=== PATIENT | female | born 1955 | race Caucasian/White ===

== ENCOUNTER 2017-03-30 14:09 | Emergency (ER) | payer MEDICAID ==
[2017-03-30 14:32] VITALS: BMI 25.5
[2017-03-30 14:34] VITALS: RESP 18
[2017-03-30] MEDS ORDERED: Sodium Chloride 0.9% 500 ML IV ONE (15:04)
[2017-03-30] MEDS ORDERED: Aluminum Hydroxide/Magnesium Hydroxide Susp (30 mL) PO STA (15:04)
--- NOTE | 2017-03-30 15:08 | C.PDOC ---
History Of Present Illness 61 year old female, history of HTN, arthritis, osteoporosis, and borderline diabetes, presents to the ED with 3 days of right flank/right upper quadrant pain and gas/burping. She reports that pain began Friday night at which time she vomited after which she felt slightly improved. She also complains of shortness of breath secondary to pain and burping. She denies trauma. Time Seen by Provider: 03/30/17 14:57 Chief Complaint (Nursing): Rib Injury History Per: Patient History/Exam Limitations: no limitations Onset/Duration Of Symptoms: Days Current Symptoms Are (Timing): Still Present Location Of Pain/Discomfort: Diffuse, Other (worst in right upper quadrant) Quality Of Discomfort: Gas Associated Symptoms: Vomiting Past Medical History Reviewed: Historical Data, Nursing Documentation, Vital Signs Vital Signs: Last Vital Signs Temp 97.9 F 03/30/17 17:19 Pulse 68 03/30/17 17:19 Resp 18 03/30/17 17:19 BP 129/62 03/30/17 17:19 Pulse Ox 98 03/30/17 17:19 - Medical History PMH: Arthritis, HTN, Osteoporosis Surgical History: Denies: Pacemaker - [facility] Procedures INJECT/INFUSE NEC (10/03/05) Family History: States: Unknown Family Hx - Social History Hx Alcohol Use: Yes (SOCIAL) Hx Substance Use: No Review Of Systems Respiratory: Positive for: Shortness of Breath Gastrointestinal: Positive for: Vomiting, Abdominal Pain Physical Exam - Physical Exam Appears: Other (Patient appears visibly uncomfortable and burping ) Skin: Normal Color, Warm, Dry Head: Atraumatic, Normacephalic Chest: Tenderness (mild right chest wall tenderness) Cardiovascular: Rhythm Regular, No Murmur Respiratory: Normal Breath Sounds Gastrointestinal/Abdominal: Tenderness (worst in right upper quadrant ) Back: CVA Tenderness (Right ), Other (Right sided muscular tenderness ) Extremity: No Pedal Edema, No Calf Tenderness, No Deformity Neurological/Psych: Oriented x3 ED Course And Treatment - Laboratory Results Result Diagrams: 03/30/17 15:53 03/30/17 15:53 O2 Sat by Pulse Oximetry: 100 Medical Decision Making Medical Decision Making: Xray of abdomen shows abdominal distension and perfuse amount of feces. Patient feeling much better Disposition Counseled Patient/Family Regarding: Studies Performed, Diagnosis, Need For Followup, Rx Given - Disposition Disposition: HOME/ ROUTINE Disposition Time: 17:50 Condition: IMPROVED Additional Instructions: Use [facility]. Siga con pitts doctor ysabel. Instructions: Constipation (ED) Forms: Gen Discharge Inst Urdu, Work/School/Gym Excuse - POA Present On Arrival: None - Clinical Impression Clinical Impression: Constipation - Scribe Statement The provider has reviewed the documentation as recorded by the Gusibcrys Curran Provider Attestation: All medical record entries made by the Gusibcrys were at my direction and personally dictated by me. I have reviewed the chart and agree that the record accurately reflects my personal performance of the history, physical exam, medical decision making, and the department course for this patient. I have also personally directed, reviewed, and agree with the discharge instructions and disposition.
[2017-03-30] MEDS ORDERED: Aluminum Hydroxide/Magnesium Hydroxide Susp (30 mL) ONE (15:32)
[2017-03-30] MEDS ORDERED: Sodium Chloride 0.9% 1,000 ML ONE (15:33)
[2017-03-30 15:59] LABS: BASO # 0.1 K/uL (0.0-0.2); BASO % 0.9 % (0.0-2.0); EOS # 0.1 K/uL (0.0-0.7); EOS % 1.2 % (0.0-4.0); HEMATOCRIT 39.7 % (34.0-47.0); LYMPH # 3.1 K/uL (1.0-4.3); LYMPH % 29.7 % (20.0-40.0); MEAN CELL VOLUME 91.2 fL (81.0-99.0); MEAN CORPUSCULAR HEMOGLOBIN 30.4 pg (27.0-31.0); MEAN CORPUSCULAR HGB CONC 33.4 g/dL (33.0-37.0); MONO # 0.7 K/uL (0.0-0.8); MONO % 6.3 % (0.0-10.0); NRBC % 0.1 % (0.0-2.0); RED CELL DISTRIBUTION WIDTH 13.1 % (11.5-14.5); WHITE BLOOD COUNT 10.5 K/uL (4.8-10.8)
[2017-03-30 16:32] LABS: RBC URINE 4 /hpf (0-3); URINE BACTERIA RARE (<OCC); URINE BILIRUBIN NEGATIVE (NEGATIVE); URINE COLOR Colorless (YELLOW); URINE GLUCOSE (UA) NORMAL (Normal); URINE KETONE NEGATIVE (NEGATIVE); URINE LEUKOCYTE ESTERASE NEG Leu/uL (Negative); URINE PROTEIN NEGATIVE (NEGATIVE); URINE UROBILINOGEN NORMAL mg/dL (0.2-1.0); WBC URINE < 1 /hpf (0-5)
[2017-03-30 16:43] VITALS: PULSE 68
--- NOTE | 2017-03-30 16:49 | RAD ---
PROCEDURE: Radiographs of the chest and abdomen (obstructive series) HISTORY: abd pain COMPARISON: No prior. TECHNIQUE: AP radiograph of the chest, with upright and supine radiographs of the abdomen. FINDINGS: CHEST: Lungs: Clear. Cardiovascular: No radiographic findings to suggest acute or significant cardiovascular disease. Pleura: No pleural fluid. No pneumothorax. Other findings: None. ABDOMEN AND PELVIS: Bowel: Unremarkable bowel gas pattern. No evidence of mechanical obstruction. Free air: None. Bones: Unremarkable. Other findings: None. IMPRESSION: Unremarkable radiographs of chest and abdomen. No evidence of mechanical bowel obstruction. Please note: No preliminary report/ innterpretation of this examination provided by emergency department personnel.
[2017-03-30 16:52] LABS: URINE BLOOD 1+ (NEGATIVE)
[2017-03-30 17:00] LABS: CHLORIDE 103 mmol/L (98-107); POTASSIUM 4.6 mmol/L (3.6-5.2); SODIUM 135 mmol/L (132-148)
[2017-03-30 17:02] LABS: BILIRUBIN,TOTAL 0.8 mg/dL (0.2-1.3); GFR AFRICAN-AMERICAN > 60
[2017-03-30 17:03] LABS: ALB/GLOB RATIO 1.2 (1.0-2.1); ALKALINE PHOSPHATASE 73 U/L (38-126); ALT/SGPT 34 U/L (9-52); AST/SGOT 54 U/L (14-36); BLOOD UREA NITROGEN 17 mg/dL (7-17); CALCIUM 9.2 mg/dl (8.6-10.4); CARBON DIOXIDE 20 mmol/L (22-30); GLUCOSE,RANDOM 85 mg/dL (65-105); TOTAL PROTEIN 8.5 g/dL (6.3-8.3)
[2017-03-30 17:20] VITALS: BP 129/62; TEMP 97.9
[2017-03-30] MEDS ORDERED: Magnesium Citrate Oral SOL (300 ml) PO ONE (17:36)
[2017-03-30 17:52] VITALS: O2SAT 100
[2017-03-30] MEDS ORDERED: Magnesium Citrate Oral SOL (300 ml) ONE (18:26)
--- NOTE | 2017-03-31 21:41 | CARD ---
APPROVED REPORT EKG Measurement Heart [id number] <Conclusion> Normal sinus rhythm Normal ECG
== END 2017-03-30 18:35 | disposition home or self-care (01) ==
LOC: C.ER 14:09
DX: K59.00 Constipation, unspecified (principal); I10 Essential (primary) hypertension; E11.9 Type 2 diabetes mellitus without complications; M19.90 Unspecified osteoarthritis, unspecified site
CPT/HCPCS: 74022; 80053; 80324; 80345; 80346; 80349; 80353; 80358; 80361; 81001; 83690; 83880; 83992; 84484; 85025; 93005; 96361; 96374; 96375; 99285; J1885; J2405; J7040

== ENCOUNTER 2017-08-05 12:13 | Emergency (ER) | payer MEDICAID ==
[2017-08-05 12:14] VITALS: BMI 25.5
[2017-08-05 12:21] VITALS: RESP 18
[2017-08-05] MEDS ORDERED: Lidocaine 5% Patch TD STA (13:34)
[2017-08-05] MEDS ORDERED: Lidocaine 5% Patch TD ONE (13:40)
--- NOTE | 2017-08-05 14:12 | RAD ---
PROCEDURE: Cervical Spine Radiographs. HISTORY: Pain. COMPARISON: None available. FINDINGS: BONES: Straightening of the normal cervical lordosis may be related to muscle spasm or positioning. Alignment appears satisfactory. No listhesis. Mild multilevel degenerative changes including small osteophyte formation. No acute displaced fracture identified. Dens tip partially obscured. DISC SPACES: Unremarkable. SOFT TISSUES: 4 mm calcification noted in the left neck, likely related to carotid artery. No prevertebral soft tissue swelling. OTHER FINDINGS: None. IMPRESSION: Straightening of the normal cervical lordosis may be related to muscle spasm or positioning. Dens tip partially obscured. Degenerative changes of the spine. Probable left carotid artery calcification.
--- NOTE | 2017-08-05 14:53 | C.PDOC ---
History Of Present Illness 61 y/o female presents to the ER complaining of pain in the left side of the neck which radiates to the left arm and . Patient reports that she cannot turn her head to the ipsilateral side. Patient denies any injuries. Of note, patient has to turn her head to the right side to move heavy objects down. Time Seen by Provider: 08/05/17 13:15 Chief Complaint (Nursing): Headache History Per: Patient History/Exam Limitations: no limitations Onset/Duration Of Symptoms: Days Current Symptoms Are (Timing): Still Present Severity: Moderate Past Medical History Reviewed: Historical Data, Nursing Documentation, Vital Signs Vital Signs: Last Vital Signs Temp 98.4 F 08/05/17 14:55 Pulse 76 08/05/17 14:55 Resp 18 08/05/17 14:55 BP 157/84 H 08/05/17 14:55 Pulse Ox 96 08/05/17 18:18 - Medical History PMH: Arthritis, HTN, Osteoporosis Surgical History: Denies: Pacemaker - [facility] Procedures INJECT/INFUSE NEC (10/03/05) Family History: States: No Known Family Hx - Social History Hx Alcohol Use: Yes (SOCIAL) Hx Substance Use: No Review Of Systems Musculoskeletal: Positive for: Neck Pain (left sided neck pain) Neurological: Negative for: Weakness, Numbness Physical Exam - Physical Exam Appears: Non-toxic, No Acute Distress Skin: Normal Color, Warm Head: Atraumatic, Normacephalic Eye(s): bilateral: Normal Inspection Nose: Normal Oral Mucosa: Moist Neck: Other (SCM muscle spasm on the left side of neck) Chest: Symmetrical Cardiovascular: Rhythm Regular Respiratory: Normal Breath Sounds, No Accessory Muscle Use, No Rales, No Rhonchi , No Wheezing Back: Normal Inspection, No CVA Tenderness Extremity: Normal ROM Neurological/Psych: Other (no focal deficits) ED Course And Treatment O2 Sat by Pulse Oximetry: 96 (RA) Pulse Ox Interpretation: Normal - Other Rad No standard instances X-Ray: Viewed By Me, Read By Radiologist Interpretation: PROCEDURE: Cervical Spine Radiographs. HISTORY: Pain. COMPARISON: None available. FINDINGS: BONES: Straightening of the normal cervical lordosis may be related to muscle spasm or positioning. Alignment appears satisfactory. No listhesis. Mild multilevel degenerative changes including small osteophyte formation. No acute displaced fracture identified. Dens tip partially obscured. DISC SPACES: Unremarkable. SOFT TISSUES: 4 mm calcification noted in the left neck, likely related to carotid artery. No prevertebral soft tissue swelling. OTHER FINDINGS: None. IMPRESSION: Straightening of the normal cervical lordosis may be related to muscle spasm or positioning. Dens tip partially obscured. Degenerative changes of the spine. Probable left carotid artery calcification. Progress Note: C-Spine X-Ray ordered.Patient given Valium PO, Toradol IM, and Lidoderm Patch. On re-evalution, patient feels better. Patient is moving her neck and has no neurological deficits. Patient is ambulatory and stable for discharge. Disposition - Disposition Disposition: HOME/ ROUTINE Disposition Time: 14:51 Condition: STABLE Additional Instructions: Follow up with PMD within 1-2 days. return to Ed if feel worse. Prescriptions: Lidocaine 5% [Lidoderm] 1 patch TP DAILY #30 patch Ibuprofen [Motrin Tab] 400 mg PO Q8 #30 tab traMADol [Ultram] 50 mg PO Q6 #30 tab diaZEpam [Valium] 2 mg PO TID #15 tab Instructions: Muscle Spasm (ED) Forms: [employer] (H[place]er), Work Excuse Print Language: KYRGYZ - Clinical Impression Clinical Impression: Neck muscle spasm - PA / JAVASCRIPT FRONT END DEVELOPER / Resident Statement MD/DO has reviewed & agrees with the documentation as recorded. - Scribe Statement The provider has reviewed the documentation as recorded by the Vicente Richey Provider Attestation All medical record entries made by the Gusibcrys were at my direction and personally dictated by me. I have reviewed the chart and agree that the record accurately reflects my personal performance of the history, physical exam, medical decision making, and the department course for this patient. I have also personally directed, reviewed, and agree with the discharge instructions and disposition.
[2017-08-05 14:56] VITALS: BP 157/84; PULSE 76; TEMP 98.4
[2017-08-05 17:49] VITALS: O2SAT 96
== END 2017-08-05 15:08 | disposition home or self-care (01) ==
LOC: C.ER 12:13
DX: M62.838 Other muscle spasm (principal); I10 Essential (primary) hypertension; M81.0 Age-related osteoporosis without current pathological fracture
CPT/HCPCS: 72040; 96372; 99284; J1885